=== PATIENT | female | born 1935 | race African-American/Black ===

== ENCOUNTER 2025-07-16 10:33 | Outpatient (AMB) | payer OTHER, MEDICAID, SELFPAY ==
--- NOTE | 2025-07-16 10:40 | A.OFFVIS_ITS ---
Intake Visit Reasons: 6 Months AD Allergies moxifloxacin (From Avelox) Allergy (Unknown, Verified 07/09/25 15:08) Unknown Penicillins Allergy (Unknown, Verified 07/09/25 15:08) Unknown HPI Comments Details: 89 yo woman probably with dementia with Lewy bodies. She was seen for parkinson disease in 2019 with right sided symptoms. She did not respond to carbidopa/levodopa and later developed hallucinating and delusional behavior, blaming other people for things. She is presenting with episodes of transient unresponsiveness and loss of consciousness. These episodes occur unexpectedly and appear as sudden collapses or becoming unconscious while eating, requiring others to assist by cleaning her mouth and eventually laying her down to rest. Recovery occurs after the patient sleeps for one to two hours. These episodes, although initially more common, h ave become less frequent over the past several days, with no such incidents reported in the last 4 to 5 days. Episodic memory loss follows each incident, with no recall of circumstances surrounding it. Evaluations during prior visits to the primary care provider suggested possibilities of seizure disorder, with a recommendation for EEG testing, to distinguish whether these episodes are due to seizures or other issues like transient hypotension. [facility] Medical History (Updated 07/16/25 @ 10:46 by Pau Hodges MD) Dementia with Lewy bodies Peripheral neuropathy Hypertension Cerebral microvascular disease Parkinson disease Review of Systems Const Details: - Neurological: Reports episodes of sudden unresponsiveness and loss of consciousness; denies recollection of events. - Cardiovascular: Mentions hypotension as a possible concern related to episodes. Physical Exam Neuro Other: She is alert and awake with decreased spontaneity and fluency of speech. She barely could see a were. Facial expression blinking were diminished. There was moderate cogwheeling rigidity in upper extremities. She was in a wheelchair. Assessment & Plan Assessment & Plan (1) Dementia with Lewy bodies: Comment: MRI brain WO at [facility] in Dec 2024: Mod diff atrophy MRI brain WO at in Dec 2018: mild to mod MVD, more so on right side of brain MRI C spine WO at in Dec 2018: diffuse DJD, mod spondylosis Code(s): G31.83 - Neurocognitive disorder with Lewy bodies; F02.80 - Dementia in other diseases classified elsewhere, unspecified severity, without behavioral distu rbance, psychotic disturbance, mood disturbance, and anxiety Category: Medical Qualifiers: Dementia severity: moderate Dementia behavioral or psychological symptom: with other behavioral disturbance Qualified Code(s): G31.83 - Neurocognitive disorder with Lewy bodies; F02.B18 - Dementia in other diseases classified elsewhere, moderate, with other behavioral disturbance (2) Transient loss of consciousness: Code(s): R55 - Syncope and collapse Category: Medical Plan I discussed with the patient and her family the possible causes of her episodes of unresponsiveness, which could be seizures, sleep disorder, or rarely related to hypotension. The potential for seizure activity prompted the recommendation of an EEG, a non-invasive test that records electrical activity in the brain, which we will conduct here. I made sure to explain the purpose and process of this diagnostic tool. Orders: Orders EEG electroencephalogram Today R55 - Syncope and collapse Coding Level of Care Code Tele Est Pt Level 4 (38203) Diagnoses Moderate Lewy body dementia with other behavioral disturbance G31.83; F02.B18 Dementia severity: moderate Dementia behavioral or psychological symptom: with other behavioral disturbance Transient loss of consciousness R55
--- OUTSIDE RECORDS SUMMARY | 2025-07-16 12:55 | XMS_ITS | Clinical Summary ---
Author Organization [facility] Address [address] [place] [address] Care Team Providers Care Gum Machine Operator Name Role Phone Jody Fontaine MD Primary Care Provider [phone] Medications No known medications Active Problems No known active problems Social History Tobacco Use Types Packs/Day Years Used Date Smoking Tobacco: Never Passive Smoke Exposure: Past Smokeless Tobacco: Never Tobacco Cessation:Counseling Given: Not Answered Alcohol Use Standard Drinks/Week Comments Yes 0 (1 standard drink = 0.6 oz pur e alcohol) Occasional Sex and Gender Information Value Date Recorded Sex Assigned at Not on file Gender Identity Not on file Sexual Orientation Not on file Job Start Date Occupation Industry Not on file Not on file Not on file Last Filed Vital Signs Vital Sign Reading Time Taken Comments Blood Pressure 133/64 08/30/2022 11:30 AM EDT Pulse 66 08/30/2022 11:30 AM EDT Temperature 36.4 C (97.6 F) 08/30/2022 11:30 AM EDT Respiratory Rate - - Oxygen Saturation 98% 08/30/2022 11:30 AM EDT Inhaled Oxygen Concentration - - Weight 65.8 kg (145 lb) 08/30/2022 11:30 AM EDT Height - - Body Mass Index - - Plan of Treatment Health Maintenance Due Date Last Done Comments COVID-19 Vaccine (#1) 04/27/1936 Depression Screening 1948 Preventative Health Evaluation 1954 DTap / Tdap / Td (1 - Tdap) 1955 Shingrix-Zoster Vaccine (1 o f 2) 1986 Fall Risk Assessment 2001 Osteoporosis Screening (DEXA Scan) 2001 RSV Adult > 60+ Yrs or (1 - 1-dose 75+ series) 2011 Influenza Vaccine (#1) 2025 0, 09/18/2019, 07/13/2017 Pneumococcal Vaccine Completed 12/17/2018, 12/15/2017 Hepatitis B Vaccines Aged Out No long er eligible based on patient's age to complete this topic RSV Ped < 20 months Aged Out No longe r eligible based on patient's age to complete this topic Care Teams Gum Machine Operator Relationship Specialty Start Date End Date Jody Fontaine MD PCP - General Internal Medicine 11/26/21
--- OUTSIDE RECORDS SUMMARY | 2025-07-16 12:55 | XMS_ITS ---
Author Name [facility] Organization Unknown Allergies Allergen Reaction Severity Comment Documented Date Source Statu s DOG DANDER 02/18/2022 [facility] active MOLD 10/06/2021 [facility] active ESCITALOPRAM 10/02/2020 [facility] activ e MOXIFLOXACIN NAUSEA AND VOMITING No reaction documented in transfer records 08/22/2017 [facility] active PENICILLINS RASH 07/13/2017 [facility] active HOUSE DUST [facility] Problems Problem Status Onset Date Problem Type Date of Resolution Source Glaucoma active 2017-07-03 ProblemAct [facility] Osteopenia active 2017-12-20 ProblemAct [facility] Overactive bladder active 2023-01-11 ProblemAct [facility] GERD (gastroesophageal reflux disease) active 2017-07-03 ProblemAct [facility] Hyperlipidemia active 2017-07-03 ProblemAct [facility] Allergic rhinitis active 2017-07-03 ProblemAct [facility] Urinary tract infection with hematuria, site unspecified active EncounterDiagnosisAct [facility] MOSES CKD (chronic kidney disease) stage 3, GFR 30-59 ml/min active 2017-07-03 ProblemAct [facility] Pulmonary nodules active 2019-03-28 ProblemAct [facility] COPD (chronic obstructive pulmonary disease) active 2022-02-16 ProblemAct [facility] N Hypertension active 2017-07-03 ProblemAct [facility] Asthma active 2017-07-03 ProblemAct [facility] Pericardial cyst active 2019-03-28 ProblemAct C T_[facility]SFRAN Prediabetes active 2017-07-03 ProblemAct [facility] Diverticulosis of colon active 2017-08-22 ProblemAct [facility] Peripheral arterial disease active 2019-05-16 ProblemAct [facility] Snoring active 2021-06-16 ProblemAct [facility] Other chest pain active 2022-02-16 ProblemAct C T_THSFRAN Shortness of breath active 2022-02-18 ProblemAct [facility] Fatigue active 2024-09-30 ProblemAct [facility] Pressure injury of contiguous region involving buttock and hip, stage 2 active 2023-11-28 ProblemAct [facility] Leg pain active 2023-12-06 ProblemAct [facility] Osteoarthritis active 2017-08-22 ProblemAct [facility]_ [facility] Ascending aorta dilatation active 2019-03-28 ProblemAct [facility] Do not resuscitate active 2024-01-18 ProblemAct [facility] Lab test negative for COVID-19 virus active 2021-04-20 ProblemAct [facility] N Urinary incontinence active 2023-01-11 ProblemAct [facility] Urinary urgency active 2023-01-[address] [facility] _[facility] Parkinson's disease active 2019-03-27 ProblemAct [facility] Fibrocystic breast disease active 2017-08-22 ProblemAct [facility] Immunizations Vaccine Date Source Lot Number Status Influenza trivalent, 0.5mL ( Fluad) 65yo and older 08/20/2024 [facility] [id number] completed Influenza trivalent, 0.5mL ( Fluad) 65yo and older 08/23/2023 [facility] [id number] completed Influenza trivalent, 0.5mL ( Fluad) 65yo and older 10/02/2020 [facility] [id number] completed Influenza trivalent, 0.5mL ( Fluad) 65yo and older 09/18/2019 [facility] [id number] completed Pneumococcal polysaccharide 23 valent (Pneumovax 23) 2yo and older 12/17/2018 [facility] [id number] com pleted Pneumococcal conjugate 13 va lent (Prevnar 13, PCV13) 2mo and older 12/15/2017 [facility] [id number] complet ed Influenza trivalent, 0.5mL ( Fluad) 65yo and older 07/13/2017 [facility] [id number] completed Zoster Live 04/10/2017 [facility]_CANDIDA [id number] completed Pneumococcal conjugate 13 va lent (Prevnar 13, PCV13) 2mo and older 02/11/2016 [facility]AYL[facility] [id number] complet ed Td Tetanus diptheria (Tdvax) 7yo and older 03/09/2007 [facility]_T HSFRAN TD-180 completed
== END 2025-07-16 11:01 | disposition home or self-care (01) ==
LOC: HO.HSM 10:34
PROVIDERS: PCP Internal Medicine; Referring Provider Internal Medicine; Visit Provider Psychiatry & Neurology Neurology
DX: G31.83 Neurocognitive disorder with Lewy bodies (principal); F02.B18 Dementia in other diseases classified elsewhere, moderate, with other behavioral disturbance; R55 Syncope and collapse
CPT/HCPCS: 99214

== ENCOUNTER → 2025-07-16 10:33 | Outpatient (BNVA) | payer OTHER, SELFPAY | PROVIDERS: PCP Internal Medicine; Referring Provider Internal Medicine; Visit Provider Psychiatry & Neurology Neurology | DX: G31.83 Neurocognitive disorder with Lewy bodies (principal); F02.B18 Dementia in other diseases classified elsewhere, moderate, with other behavioral disturbance; R55 Syncope and collapse | CPT/HCPCS: 99212 ==

== ENCOUNTER 2025-07-30 10:30 | Outpatient (REF) | payer OTHER, SELFPAY ==
--- NOTE | 2025-07-30 13:06 | EEG_ITS ---
Roomed Performed: 402 Reason:Syncope/ collapse History: H/O dementia with Lewy bodies, Parkinson disease in 2019 with right sided symptoms, Peripheral neuropathy Hypertension, Cerebral microvascular disease- pt c/o episodes of transient unresponsiveness and loss of consciousness-episodes occur unexpectedly and appear as sudden collapses or becoming unconscious while eating, requiring others to assist by cleaning her mouth and eventually laying her down to rest. Recovery occurs after the patient sleeps for one to two hours. These episodes, although initially more common, have become less frequent over the past several days, with no such incidents reported in the last 4 to 5 days-MRI brain WO at [facility] in Dec 2024: Mod diff atrophy Medication: list not available on [employer] Technical description: Photic stimulation: Completed Hyperventilation: Omitted Behavioral state: Pleasant and cooperative State of Consciousness: awake and drowsy Skull defect: No Sedation: No Handedness: Right Duration of study: 32 min 28 sec Description: This is a 16 channel EEG with an EKG lead. Patient is reported awake and drowsy during the tracing. Background EEG rhythm is 7-8 hertz 5-100 microvolt posteriorly and lower amplitude fast anteriorly. Photic stimulation does not produce any significant driving. Hyperventilation is unremarkable. Cardiac lead does not reveal any significant abnormality. No sharp waves spikes or paroxysmal tendency noted. Impression: Mild generalized slowing with no evidence of seizure disorder. MTDD
--- OUTSIDE RECORDS SUMMARY | 2025-07-30 13:07 | XMS_ITS | Clinical Summary ---
Author Organization [facility] Address [address] [place] [address] Care Team Providers Care Casting And Locker Room Servicer Name Role Phone Jody Fontaine MD Primary Care Provider [phone] Medications No known medications Active Problems No [...] age to complete this topic Care Teams Casting And Locker Room Servicer Relationship Specialty Start Date End Date oJdy Fontaine MD PCP - General Internal Medicine 11/26/21
== END 2025-07-30 10:31 | disposition home or self-care (01) ==
LOC: HO.NEURO 10:30
PROVIDERS: PCP Internal Medicine; Visit Provider Psychiatry & Neurology Neurology
DX: R55 Syncope and collapse (principal); G31.83 Neurocognitive disorder with Lewy bodies; F02.80 Dementia in other diseases classified elsewhere, unspecified severity, without behavioral disturbance, psychotic disturbance, mood disturbance, and anxiety; G20.A1 Parkinson's disease without dyskinesia, without mention of fluctuations; G62.9 Polyneuropathy, unspecified
CPT/HCPCS: 95816

== ENCOUNTER → 2025-07-30 13:06 | Outpatient (BNV) | payer OTHER, SELFPAY | PROVIDERS: PCP Internal Medicine; Visit Provider Psychiatry & Neurology Neurology | DX: R55 Syncope and collapse (principal) | CPT/HCPCS: 95816 ==

== ENCOUNTER 2025-09-03 10:32 | Outpatient (AMB) | payer OTHER, MEDICAID, SELFPAY ==
--- NOTE | 2025-09-03 10:42 | A.OFFVIS_ITS ---
Intake Visit Reasons: results Allergies moxifloxacin (From Avelox) Allergy (Unknown, Verified 07/09/25 15:08) Unknown Penicillins Allergy (Unknown, Verified 07/09/25 15:08) Unknown HPI Comments Details: 89 yo woman probably with clinical picture of dementia with Lewy bodies. She was seen for Parkinson disease in 2019 with right sided symptoms. She did not respond to carbidopa/levodopa and later developed hallucinating and delusional behavior, blaming other people for things. She had episodes of unresponsiveness and an EEG was done in July of 2025 that did not reveal any epileptic discharges. Generalized slowing was noted. She was here with the children. She has required 24/7 care. Hallucinations were still happening but not creating significant logistical problems. She would still get episodes of apparently sleeping or unresponsiveness. No convulsion or seizure-like episode. She was in a wheelchair. She was unable to get up on her own. [facility] Medical History (Updated 09/03/25 @ 10:45 by Pau Hodges MD) Dementia with Lewy bodies Peripheral neuropathy Hypertension Cerebral microvascular disease Parkinson disease Review of Systems Narrative She was having hallucinations. Not able to get up on her own and required 247 care. Physical Exam Neuro Other: Mental Status: Alert and awake with decreased spontaneity and fluency of speech. When asked a question, she briefly answers. Intermittently she smiles. Cranial Nerves: CN II: Visual freire full to confrontation, visual acuity intact. CN III, IV, : Pupils equal, round, reactive to light and accommodation. Extraocular movements are normal. CN V: Facial sensation is normal. CN VII: Facial movements symmetrical. CN VIII: Hearing intact to bedside conversation is normal. CN IX, X: Palate elevates symmetrically. CN XI: Shoulder shrug and head turn symmetrical. CN XII: Tongue midline without atrophy or fasciculations. She is in a wheelchair. Extrapyramidal: Decreased facial expression blinking. Moderate cogwheeling rigidity. Significant arthritic changes in hands. [id number] generalized bradykinesia. Speech: Normal; no dysarthria or tremor. Assessment & Plan Assessment & Plan (1) Dementia with Lewy bodies: Comment: EEG at [facility] in Jul 2025: Gen slowing MRI brain WO at [facility] in Dec 2024: Mod diff atrophy MRI brain WO at in Dec 2018: mild to mod MVD, more so on right side of brain MRI C spine WO at in Dec 2018: diffuse DJD, mod spondylosis Code(s): G31.83 - Neurocognitive disorder with Lewy bodies; F02.80 - Dementia in other diseases classified elsewhere, unspecified severity, without behavioral disturbance, psychotic disturbance, mood disturbance, and anxiety Category: Medical Qualifiers: Dementia severity: moderate Dementia behavioral or psychological symptom: with other behavioral disturbance Qualified Code(s): G31.83 - Neurocognitive disorder with Lewy bodies; F02.B18 - Dementia in other diseases classified elsewhere, moderate, with other behavioral disturbance Plan Impression: a: Parkinsonism, a part of dementia syndrome b: Probably dementia with Lewy body syndrome, moderate to severe requring 29/05 help c: 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
--- OUTSIDE RECORDS SUMMARY | 2025-09-03 13:05 | XMS_ITS | Encounter Summary ---
Author Organization [facility] [place] [address] Care Team Providers Care Clarifier Name Role Phone Jody Fontaine MD Primary Care Provider [phone] Reason for Visit * Reason Onset Date Comments Vaginitis/Bacterial Vaginosis 09/01/2025 Encounter Details Date Type Department Care Team (Late st Contact Info) Description 09/01/2025 [place] [facility] [place] [address] [phone] Rosie Atkins NP [address], [place] Social History Tobacco Use Types Packs/Day Years Used Date Smoking Tobacco: Never Smokeless Tobacco: Never Alcohol Use Standard Drinks/Week Comments No 0 (1 standard drink = 0.6 oz pur e alcohol) Comments No Sex and Gender Information Value Date Recorded Sex Assigned at Not on file Legal Sex Female 1:53 PM EST Gender Identity Not on file Sexual Orientation Not on file documented as of this encounter Functional Status * Are you deaf or do you have serious difficulty hearing? Answer Date of Assessment Author No 07/10/2025 9:35 AM Nataly Pichardo RN * Are you blind or do you have serious difficulty seeing, even when wearing glasses? Answer Date of Assessment Author No 07/10/2025 9:35 AM Nataly Pichardo RN * Do you have serious difficulty walking or climbing stairs? Answer Date of Assessment Author Yes 07/10/2025 9:35 AM EDT Nataly Hdz RN * Do you have serious difficulty dressing or bathing? Answer Date of Assessment Author Yes 07/10/2025 9:35 AM EDT Nataly Hdz RN * Because of a physical, mental, or emotional condition, do you have serious difficulty doing errandsalone such as visiting the doctor? Answer Date of Assessment Author Yes 07/10/2025 9:35 AM EDT Nataly Hdz RN documented as of this encounter Mental Status * Because of a physical, mental, or emotional condition, do you have serious difficulty concentrating, remembering, or making decisions? (5 years old or older) Answer Entry Date Author Yes 07/10/2025 9:35 AM EDNataly Rodriguez RN documented in this encounter Progress Notes * Georgiana Wooten RN - 09/01/2025 10:39 AM EDT Pt has UTI and is being treated with Macrobid per culture. She also has moisture associated dermatitis she will use lotrimin cream and then use zinc and Vaseline as barrier on buttocks * India Cárdenas - 09/01/2025 10:17 AM EDT Patient call requires triage: Symptoms patient is presenting: daughter is calling. Patient was seen on 08/20 and was prescribed clotrimazole (LOTRIMIN) 1 % cream for fungus. Daughter states her mother has raw skin in the vaginal area, labia area, very tender, she saw some blood when she is cleaning the area. She is asking if this medication can be used in the vaginal area or is something else more appropriate. The area is very uncomfortable for the patient. Patient is bedridden. Being treated for a UTI and fungal infection from W[facility] Atkins. How long has patient had these symptoms?: unsure For ALL patients calling to schedule any appointment (routine, sick visit, follow up, consult, etc.) in the outpatient setting please ask the following questions: Do you have fever of higher than 101, sore throat with difficulty swallowing or severe shortness ofbreath? no If YES to any of these above symptoms, send a message to triage and do not book. Red dot. If no, an audio or video visit should be booked. Have you had close contact with someone with Coronavirus in the last 14 days? no Have you traveled abroad? no Have you traveled recently to another state outside of [place], [place], [place], [place], [place], [place], [place]? no o If yes, did you quarantine for 14 days or have a negative covid test? no If yes to any of the above, patient is not to be scheduled in office until after 14 day quarantine or negative covid test. If pain or injury related was it due to an accident at work or from a motor vehicle accident? If yes, date of accident/Injury: No If yes, gather 3rd green party insurance information Third Republican Information: not applicable PCP: Jody Fontaine MD Payor: [employer] / Plan: [employer] / Product Type: *No Product type* / documented in this encounter Plan of Treatment Upcoming Encounters Date Type Department Care Team (Late st Contact Info) Description 11/26/2025 11:00 AM EST [place] [facility] [place] [address] [place] [address] Rosie Atkins NP [address], [place] 03/04/2026 11:00 AM EDT Office Visit Pulmonology - [address] [place] [phone] Sumi Borrego MD [address] [place] [phone] documented as of this encounter Visit Diagnoses Not on filedocumented in this encounter Care Teams Clarifier Relationship Specialty Start Date End Date Jody Fontaine MD [address], [place] PCP - General Internal Medicine 09/06/21 documented as of this encounter
--- OUTSIDE RECORDS SUMMARY | 2025-09-03 13:05 | XMS_ITS | Encounter Summary ---
Author Organization [email or web address] [address] Care Team Providers Care Freight Sorter Name Role Phone Jody Fontaine MD Primary Care Provider [phone] Encounter Details Date Type Department Care Team (Late st Contact Info) Description 08/25/2025 Results [place] [facility] [place] [address] [place], [place] [phone] Rosie Atkins NP [address], [place] Social History Tobacco Use Types Packs/Day [...] Entry Date Author Yes 07/10/2025 9:35 AM EDT Nataly Hdz RN documented in this encounter Ordered Prescriptions Prescription Sig Dispense Quantity Refills Last Filled Start Date End Date nitrofurantoin, macrocrystal-monoh ydrate, (MACROBID) 100 mg capsule Take 1 capsule (100 mg total) by mouth 2 (two) times a day for 7 days. 14 each 08/25/2025 documented in this encounter Progress Notes * Rosie Atkins NP - 08/25/2025 12:34 PM EDT Patient UA is consistent with possible UTI. Will send prescription for Macrobid twice daily for 7 days. May adjust medication depending on susceptibility and culture. Spoke with daughter Mariangel, who will pick prescription up from pharmacy. documented in this encounter Plan of Treatment Upcoming Encounters Date Type Department Care Team (Late st Contact Info) Description 11/26/2025 11:00 AM EST [place] [facility] [place] [address] [place] [address] Rosie Atkins NP [address], [place] 03/04/2026 11:00 AM EDT Office Visit Pulmonology - [address] [place] [phone] Sumi Borrego MD [address] [place] [phone] documented as of this encounter Visit Diagnoses Diagnosis Acute cystitis without hematuria- Primary documented in this encounter Care Teams Freight Sorter Relationship Specialty Start Date End Date Jody Fontaine MD [address] [place] [address] PCP - General Internal Medicine 09/06/21 documented as of this encounter
--- OUTSIDE RECORDS SUMMARY | 2025-09-03 13:05 | XMS_ITS | Encounter Summary ---
Author Organization [facility] [place] [address] Care Team Providers Care Fly Rail Operator Name Role Phone Jody Fontaine MD Primary Care Provider [phone] Reason for Visit * Reason Onset Date Comments Fitting for DME 08/22/2025 Homecare Deliver ed Encounter Details Date Type Department Care Team (Late st Contact Info) Description 08/22/2025 [place] [facility] [place] [address] [place] [phone] Jody Fontaine MD [address], [place] [phone] Social History Tobacco Use Types Packs/Day Years [...] of Assessment Author No 07/10/2025 9:35 AM EDT Nataly Hdz RN * Are you blind or do you have serious difficulty seeing, even when wearing glasses? Answer Date of Assessment Author No 07/10/2025 9:35 AM EDNataly Rodriguez RN * Do you have serious difficulty [...] Nataly Hdz RN documented in this encounter Progress Notes * Go Yip MA - 09/01/2025 4:42 PM EDT Signed orders faxed * Go Yip [place] - 08/26/2025 2:43 PM EDT To PCP for sig * Fany Gomez - 08/22/2025 2:20 PM EDT DME REQUEST Name of Product: adult size pull up-on lg, non-sterile gloves, large disposable underpad and reusable underpad bed doreen Specific information about product n/a # Needed n/a Reason patient is asking for this supply? Unspecified urinary incontinence and urgency or urination Have you received this supply before? If yes , when?: unknown Have you discussed the need for this supply with a provider at a recent visit? If yes, with who andwhen? unknown When completed: fax to [phone] Who is requested? Is this a fax request? Have you told the patient it will take 7-10 days for completion of this request? No documented in this encounter Plan of Treatment Upcoming Encounters Date Type Department Care Team (Late st Contact Info) Description 11/26/2025 11:00 AM EST Office Visit [place] [facility] [place] [address] [phone] Rosie Atkins NP [address], [place] 03/04/2026 11:00 AM EDT Office Visit Pulmonology - [address] [place] [phone] Sumi Borrego MD [address] [place] [phone] documented as of this encounter Visit Diagnoses Not on filedocumented in this encounter Care Teams Fly Rail Operator Relationship Specialty Start Date End Date Jody Fontaine MD [address] [place] [address] PCP - General Internal Medicine 09/06/21 documented as of this encounter
--- OUTSIDE RECORDS SUMMARY | 2025-09-03 13:05 | XMS_ITS | Clinical Summary ---
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
--- OUTSIDE RECORDS SUMMARY | 2025-09-03 13:05 | XMS_ITS | Clinical Summary ---
Author Organization [address] [facility] Address [address] [place] [address] Phone Care Team Providers Care Cafe Site Attendant Name Role Phone Jody Fontaine MD Primary Care Provider [phone] Allergies Active Allergy Reactions Criticality Noted Date Comments Dog Dander 02/18/2022 Escitalopram 10/02/2020 House Dust 10/06/2021 Mold 10/06/2021 Moxifloxacin Nausea And Vomiting Medium 08/22/2017 No reaction documented in transfer records Penicillins Rash 07/13/2017 Medications albuterol 2.5 mg /3 mL (0.083 %) nebulizer solution Inhale 3 mL (2.5 mg total) by mouth. Prescribed by Pulmonology 10/04/20 22 Active albuterol HFA (PROAIR HFA ; PROVENTIL HFA ; VENTOLIN HFA) 90 mcg/actuation inhaler Inhale 2 puffs by mouth. Prescribed by Pulmonology 08/28/20 23 Active cholecalcifer ol (VITAMIN D-3) 25 mcg (1,000 unit) tablet Take 1 tablet (1,000 Units total) by mouth 1 (one) time each day. OTC Active dorzolamide-t imoloL (COSOPT) 22.3-6.8 mg/mL ophthalmic solution Prescribed by Dr. Patel (Ophthalmology) 09/06/20 24 Active senna (SENOKOT) 8.6 mg tablet Take by mouth. OTC Active zinc oxide 20 % ointment OTC 12/25/19 24 Active carbidopa-lev odopa CR (SINEMET CR) 50-200 mg per CR tablet Take 1 tablet by mouth 4 (four) times a day. 03/18/20 21 Active budesonide (PULMICORT) 1 mg/2 mL nebulizer solutionIndic ations:COPD with asthma (CMS/[facility] V24, CMS/[facility] V28) Take 2 mL (1 mg total) by nebulization 1 (one) time each day. Rinse mouth with water after use to reduce aftertaste and incidence of candidiasis. Do not swallow. 60 mL 11 12/11/19 25 026 Active famotidine (PEPCID) 20 mg tablet TAKE 1 TABLET(20 MG) BY MOUTH TWICE DAILY FOR 15 DAYS 30 tablet 02/12/20 25 Active apixaban (Eliquis) 5 mg tablet Take 1 tablet (5 mg total) by mouth 2 (two) times a day. 180 tablet 04/30/20 25 Active cetirizine (ZyrTEC) 10 mg tablet Take 1 tablet (10 mg total) by mouth 1 (one) time each day. 90 tablet 04/30/20 25 Active amLODIPine (NORVASC) 2.5 mg tablet TAKE 1 TABLET(2.5 MG) BY MOUTH 1 TIME EACH DAY 90 tablet 1 05/08/20 25 Active polyethylene glycol (MIRALAX) 17 gram packet Take 17 g by mouth 1 (one) time each day. 30 packet 3 06/11/20 25 Active bimatoprost (LUMIGAN) 0.03 % ophthalmic drops Administer 1 drop into both eyes 1 (one) time each day. 04/08/20 08 Active foam bandage (Mepilex Border Sacrum) 9.2 X 9.2 bandage Apply 1 each topically 2 (two) times a day if needed (if soild). Apply to pressure area (buttocks) 60 each 3 06/16/20 25 Active hydroCHLOROth iazide (HYDRODIURIL) 25 mg tablet Take 0.5 tablets (12.5 mg total) by mouth 1 (one) time each day. 90 tablet 06/16/20 25 Active estradioL (ESTRACE) 0.01 % (0.1 mg/gram) vaginal cream USE 0.5 GRAMS IN THE VAGINA TWICE A WEEK AT NIGHT(MONDAYS AND THURSDAYS) 42.5 g 1 07/17/20 25 Active baclofen (LIORESAL) 10 mg tablet TAKE 1 TABLET(10 MG) BY MOUTH TWICE DAILY 180 tablet 1 07/17/20 25 Active omeprazole (PriLOSEC) [address] capsule TAKE 1 CAPSULE(20 MG) BY MOUTH 1 TIME EACH DAY 90 capsule 1 08/21/20 25 Active clotrimazole (LOTRIMIN) 1 % cream Apply topically 2 (two) times a day. 15 g 3 08/20/20 25 Active budesonide (Pulmicort) 0.5 mg/2 mL nebulizer solutionIndic ations:COPD with asthma ([facility] V24, [facility] V28) Take 2 mL (0.5 mg total) by nebulization 2 (two) times a day. Rinse mouth with water after use to reduce aftertaste and incidence of candidiasis. Do not swallow. 120 mL 11 08/27/20 25 026 Active albuterol 2.5 mg /3 mL (0.083 %) nebulizer solutionIndic ations:COPD with asthma ([facility] V24, [facility] V28) Take 3 mL (2.5 mg total) by nebulization every 6 (six) hours if needed for wheezing. 360 mL 08/27/20 Active Arnuity Ellipta 200 mcg/actuation blister with device inhaler INHALE 1 PUFF INTO THE LUNGS DAILY 025 Discontinued fluticasone HFA (FLOVENT HFA) 110 mcg/actuation inhaler INHALE 2 PUFFS INTO THE LUNG TWICE DAILY 025 Discontinued methenamine hippurate (HIPREX) 1 gram tablet Take 1 tablet (1 g total) by mouth 2 (two) times a day. 60 each 3 12/05/19 25 025 Discontinued omeprazole (PriLOSEC) [address] capsule TAKE 1 CAPSULE(20 MG) BY MOUTH 1 TIME EACH DAY 90 capsule 05/22/20 25 025 Discontinued clotrimazole (LOTRIMIN) 1 % cream Apply topically 2 (two) times a day. 15 g 1 06/16/20 25 025 Discontinued(R eorder) nitrofurantoi n, macrocrystal- monohydrate, (MACROBID) 100 mg capsule Take 1 capsule (100 mg total) by mouth 2 (two) times a day for 7 days. 14 each 08/25/20 25 025 Active Problems Problem Noted Date Diagnosed Date Pressure injury of sacral re gion, stage 2 ([facility] V24, [facility] V28) 03/03/2025 Fatigue 09/30/2024 Do not resuscitate 01/18/2024 Leg pain 12/06/2023 Pressure injury of contiguou s region involving buttock and hip, stage 2 ([facility] V24, [facility] V28) 11/28/2023 Overactive bladder 01/11/2023 Urinary incontinence 01/11/2023 Urinary urgency 01/11/2023 Shortness of breath 02/18/2022 COPD (chronic obstructive pu lmonary disease) ([facility] V24, [facility] V28) 02/16/2022 Other chest pain 02/16/2022 Overview (09/30/2024): Ongoing Snoring 06/16/2021 Overview (09/30/2024): 05/2021 Home Sleep Study did not reveal sleep apnea or nocturnal hypoxia. Lab test negative for COVID-19 virus 04/20/2021 Peripheral arterial disease ([facility] V24) 2018 Overview (09/30/2024): (03/07/2019): Right foot CRISTINA 0.37, left foot CRISTINA 1.05. Significant on the right side. Performed by [facility] advanced practice clinicians. 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 She was seen in ER for this, and case was discussed with cardiac surgeon and no intervention was needed at that time and was advised to follow-up with outpatient cardiac surgery. She is been referred to cardiac surgeon. Last Assessment & Plan: 86-year-old woman with multiple medical comorbidities with a pericardial cyst that now is slightly above 6 cm in size. To my eye, this is slightly bigger than previous CAT scan from a year ago. I had a long discussion with her and her daughter about pericardial cyst in general and that I do not think this is affecting her in any way. I certainly do not think this is causing her fatigue which is one of her main complaints at this time. It is possible that this is causing the dull pain that she has underneath her breastbone although there is no guarantee with that either. Given that this is almost certainly a benign and to have borderline size for resection in combination with her age/comorbidities my recommendation would be for continued follow-up CT scans. Her next CT scan will be in 1 years time. We did also discussed the possibility of surgery which I be willing to offer but I did make it clear that this will not improve her general fatigue. Pulmonary nodules 03/28/2019 Overview (09/30/2024): Tiny pulmonary nodules seen on CT chest 03/24. Parkinson's disease ([facility] V24, [facility] V28) 0 03/27/2019 Osteopenia 12/20/2017 Diverticulosis of colon 08/22/2017 Fibrocystic breast disease 08/22/2017 Osteoarthritis 08/22/2017 Allergic rhinitis 07/03/2017 Asthma 07/03/2017 CKD (chronic kidney disease) stage 3, GFR 30-59 ml/min (CMS/HCC V24, CMS/HCC V28) 07/03/2017 GERD (gastroesophageal reflux disease) 7 Glaucoma 07/03/2017 Hyperlipidemia 07/03/2017 Hypertension 07/03/2017 Prediabetes 07/03/2017 Encounters Date Type Department Care Team Description 09/01/2025 Telephone Adult Medicine [address] [address] Rosie Atkins NP 08/27/2025 10:30 AM EDT Office Visit Pulmonology - [address] [place] [address] Sumi Borrego MD Lung nodules (Primary Dx); COPD with asthma (CMS/HCC V24, CMS/HCC V28); Chronic cough 08/25/2025 Results Follow-Up [address] [phone] Rosie Atkins NP 08/22/[address] [phone] Jody Fontaine MD 08/20/2025 2:00 PM EDT Office Visit [address] [phone] Rosie Atkins NP Dysuria (Primary Dx); Frequency of urination; Postural urinary incontinence; Candidal intertrigo 07/10/2025 9:22 AM EDT - 07/10/2025 12:01 PM EDT Emergency [facility] Emergency [address] [place] [address] Zeyad Jones MD Right leg swelling (Primary Dx); Atkins's cyst of knee, right; Arthritis of right knee Discharge Disposition: Home or Self Care 06/16/2025 1:00 PM EDT Office Visit [address] [phone] Rosie Atkins NP Candidal intertrigo (Primary Dx); Pressure injury of buttock, stage 2, unspecified laterality (CMS/HCC V24, CMS/[facility] V28); Syncope, unspecified syncope type; Parkinson's disease, unspecified whether dyskinesia present, unspecified whether manifestations fluctuate (CMS/HCC V24, CMS/HCC V28); Primary hypertension; Encounter for screening for cardiovascular disorders 06/16/[address] [phone] Rosie Atkins NP from Last 3 Months Immunizations Immunization Administration Dates Next Due Influenza trivalent, 0.5mL ( Fluad) 65yo and older 08/20/2024,08/23/2023,10/02/2020,09/18,07/13/2017 Pneumococcal conjugate 13 va lent (Prevnar 13, PCV13) 2mo and older 12/15/2017,02/11/2016 Pneumococcal polysaccharide 23 valent (Pneumovax 23) 2yo and older 12/17/2018 Td Tetanus diptheria (Tdvax) 7yo and older 03/09/2007 Zoster Live 04/10/2017 Surgical History Surgery Date Site/Laterality Comments HYSTERECTOMY PROCEDURE: HISTORICAL HYSTERECTOMY OTHER SURGICAL HISTORY 2006 PROCEDURE: HISTORY OTHER; COMMENT: Sinus sugery UPPER GASTROINTESTINAL ENDOSCOPY 2014 PROCEDURE: [place] UPPER GI ENDOSCOPY PERFORMED; COMMENT: Pleet; normal COLONOSCOPY 2010 PROCEDURE: HISTORICAL COLONOSCOPY; COMMENT: Pleet; single non-specific erosion in the TI. COLONOSCOPY 2014 PROCEDURE: HISTORICAL COLONOSCOPY; COMMENT: Pleet, diverticulosis and melanosis coli. Medical History Medical History Date Comments Hypertension 07/03/2017 DX:Hypertension Allergic rhinitis 07/03/2017 DX:Allergic rh initis Glaucoma 07/03/2017 DX:Glaucoma Asthma 07/03/2017 DX:Asthma Prediabetes 07/03/2017 DX:Prediabetes CKD (chronic kidney disease) stage 3, GFR 30-59 ml/min (CMS/HCC V24, CMS/HCC V28) 07/03/2017 DX:CKD (chronic kidney disea se) stage 3, GFR 30-59 ml/min ([facility]) Positive Helicobacter pylori serology 07/03/2017 DX:Positive Helicobacter pylori serology; COMMENT: Referred for UGI. Dr Chaney GERD (gastroesophageal reflux disease) 7 DX:GERD (gastroesophageal reflux disease) Hyperlipidemia 07/03/2017 DX:Hyperlipidemi a Osteoarthritis 08/22/2017 DX:Osteoarthriti s Diverticulosis of colon 08/22/2017 DX:Diver ticulosis of colon Fibrocystic breast disease 08/22/2017 DX:Fi brocystic breast disease Osteopenia 12/20/2017 DX:Osteopenia Positive H. pylori test 03/28/2019 DX:Posit savannah H. pylori test Ascending aorta dilatation ( CMS/HCC V24) 03/28/2019 DX:Ascending aorta dilatatio n (HCC); COMMENT: [address] chest 03/24 Pulmonary nodules 03/28/2019 DX:Pulmonary n odules; COMMENT: Tiny pulmonary nodules seen on CT chest 03/24. History of Helicobacter pylo ri infection 07/03/2017 DX:History of Helicobacter p ylori infection; COMMENT: Referred for UGI. Dr Chaney. No additional details available in transfer records. 08/12/2019---rx completed 08/02/2019. Fatigue DX:Fatigue Other chest pain DX:Other chest pain DVT (deep venous thrombosis) ([facility] V24, [facility] V28) DX:DVT (deep venous thrombos is) ([facility]); COMMENT: bilateral Vascular disease DX:Vascular dis ease COPD (chronic obstructive pu lmonary disease) ([facility] V24, [facility] V28) DX:COPD (chronic o bstructive pulmonary disease) ([facility]) Parkinson's disease ([facility] V24, [facility] V28) DX:Parkinson's disease ([facility]) 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 ner syndrome Family History Medical History Relation Name Comments Colon cancer Mother Dementia Relation Name Status Comments Father Mother Social History Tobacco Use Types Packs/Day Years Used Date Smoking Tobacco: Never Smokeless Tobacco: Never Tobacco Cessation:Counseling Given: Not Answered Alcohol Use Standard Drinks/Week Comments No 0 (1 standard drink = 0.6 oz pur e alcohol) Comments No Sex and Gender Information Value Date Recorded Sex Assigned at Not on file Legal Sex Female 1:53 PM EST Gender Identity Not on file Sexual Orientation Not on file Obstetrics History Last Filed Vital Signs Vital Sign Reading Time Taken Comments Blood Pressure 103/61 08/27/2025 10:18 AM EDT Pulse 68 08/27/2025 10:18 AM EDT Temperature 35.5 C (95.9 F) 08/27/2025 10:18 AM EDT Respiratory Rate 14 07/10/2025 9:34 AM EDT Oxygen Saturation 91% 08/27/2025 10:18 AM EDT Inhaled Oxygen Concentration - - Weight 67.1 kg (148 lb) 08/27/2025 10:18 AM EDT Height 167.6 cm (5' 6 ) 08/20/2025 1:59 PM EDT Body Mass Index 23.89 08/20/2025 1:59 PM EDT Plan of Treatment Upcoming Encounters Date Type Department Care Team (Late st Contact Info) Description 11/26/2025 11:00 AM EST Office Visit Adult Medicine [id number] [place] [phone] Rosie Atkins NP [address] [place] [address] 03/04/2026 11:00 AM EDT Office Visit Pulmonology - [place] [address] [place] [address] Sumi Borrego MD [address] [place] [phone] Health Maintenance Due Date Last Done Comments COVID-19 Vaccine (#1) 1941 RSV Immunization Adult Patients (1 - 1-dose 75+ series) 2011 DTaP,Tdap,and Td Vaccines (2 - Td or Tdap) 03/09/2017 03/09/2007 Zoster Vaccines (1 of 2) 06/05/2017 04/10/2017 Cholesterol Screening (Lipid Panel) 10/04/2022 Medicare Annual Wellness Visit 10/04/2022 Social Influencers of Health Screening 10/04/2022 Depression Screening 11/06/2024 Influenza Vaccine (#1) 2025 , 08/23/2023, 10/02/2020, Additional history exists Hypertension/CHF/CAD Annual BMP Blood Test 01/14/2026 01/14/2025, 09/30/2024, 08/20/2024 Falls Risk Assessment 06/16/2026 06/16/2025 Osteoporosis Screening (Bone Density Screening) 05/11/2031 05/11/2021, 12/20/2017 Pneumococcal Vaccine: 50+ Years Completed 12/17/2018, 12/15/2017, 02/11/2016, Additional history exists HIB Vaccines Aged Out No longer eligi ble based on patient's age to complete this topic HPV Vaccines Aged Out No longer eligi ble based on patient's age to complete this topic Hepatitis A Vaccines Aged Out No long er eligible based on patient's age to complete this topic Hepatitis B Vaccines Aged Out No long er eligible based on patient's age to complete this topic IPV Vaccines Aged Out No longer eligi ble based on patient's age to complete this topic MMR Vaccines Aged Out No longer eligi ble based on patient's age to complete this topic Meningococcal ACWY Vaccine Aged Out N o longer eligible based on patient's age to complete this topic Meningococcal B Vaccine Aged Out No l onger eligible based on patient's age to complete this topic RSV Immunization Patients Under 20 months Aged Out No longer eligible based on patient's age to complete this topic Varicella Vaccines Aged Out No longer eligible based on patient's age to complete this topic Procedures Procedure Name Priority Date/Time Associated Diagnosis Comments URINALYSIS WITH REFLEX MICROSCOPIC AND CULTURE Routine 08/25/2025 10:03 AM EDT Dysuria CULTURE URINE Routine 08/25/2025 10:03 AM EDT Dysuria EXTERNAL NEUROLOGY REPORT 07/30/2025 VAS US DUPLEX LOWER EXT VENOUS RIGHT STAT 07/10/2025 10:15 AM EDT Right leg swelling COMPREHENSIVE METABOLIC PANEL STAT 01/14/2025 12:31 PM EDT DXA BONE DENSITY STUDY 1+ SITS AXIAL SKEL Routine 05/11/2021 2:48 PM EDT Parkinson's disease ([facility] V24, [facility] V28) from Last 3 Months or Most Recently Relevant to Health Maintenance Results * (ABNORMAL) Urinalysis with reflex microscopic and culture (08/25/2025 10:03 AM EDT) Specific Flushing Urine 1.010 1.003 - 1.030 LAB URINALYSIS - AUTOMATED METHOD 08/25/2025 11:59 AM EDT [facility] pH, Urine 6.5 5.0 - 8.0 pH LAB URINALYSIS - AUTOMATED METHOD 08/25/2025 11:59 AM T [facility] Leukocytes, Urine Moderate(A) Negative LAB URINALYSIS - AUTOMATED METHOD 08/25/2025 11:59 AM T [facility] Nitrite, Urine Positive(A) Negative LAB URINALYSIS - AUTOMATED METHOD 08/25/2025 11:59 AM [facility] Protein, Urine Negative <=Trace mg/dL LAB URINALYSIS - AUTOMATED METHOD 08/25/2025 11:59 AM [facility] Glucose, Urine Negative Negative mg/dL LAB URINALYSIS - AUTOMATED METHOD 08/25/2025 11:59 AM [facility] Ketones, Urine Trace(A) Negative mg/dL LAB URINALYSIS - AUTOMATED METHOD 08/25/2025 11:59 AM [facility] Urobilinogen , Urine 0.2 0.2 - 1.0 mg/dL LAB URINALYSIS - AUTOMATED METHOD 08/25/2025 11:59 AM [facility] Bilirubin, Urine Negative Negative LAB URINALYSIS - AUTOMATED METHOD 08/25/2025 11:59 AM [facility] Blood, Urine Negative Negative LAB URINALYSIS - AUTOMATED METHOD 08/25/2025 11:59 AM [facility] RBC, Urine 1 0 - 4 /HPF 08/25/2025 11:59 AM [facility] WBC, Urine 50(H) 0 - 4 /HPF 08/25/2025 11:59 AM [facility] Squamous Epithelial, Urine 20 0 - 60 /LPF 08/25/2025 11:59 AM [facility] Bacteria, Urine Many(A) Negative /HPF 08/25/2025 11:59 AM [facility] Hyaline Casts, Urine 0 0 - 3 /LPF 08/25/2025 11:59 AM [facility] Urine Urine specimen obtained by clean catch procedure / Unknown Non-blood Collection / Unknown 08/25/2025 10:03 AM EDT 08/25/2025 10:03 AM EDT us Rosie Atkins TURF MANAGER LAB URINE ORDERABLES Final R esult Performing Organization Address [facility]/ZIP Co de Phone Number [facility] [address] [place] [address], * (ABNORMAL) Culture urine (08/25/2025 10:03 AM EDT) Culture, Urine >=100,000 CFU/mL Escherichia coli(A) ROYER 08/29/2025 11:32 AM EDT [facility] Urine Urine specimen obtained by clean catch procedure / Unknown Non-blood Collection / Unknown 08/25/2025 10:03 AM EDT 08/25/2025 11:59 AM EDT Narrative [facility] - 08/29/2025 11:32 AM EDT Additional colony types present in insignificant amounts. Organism Antibiotic Method Susceptibility Escherichia coli Amoxicillin/Clavulanate ROYER 8 ug/ml: Resistant Escherichia coli Ampicillin/Sulbactam ROYER >=32 ug/ml: Resistant Escherichia coli Piperacillin/Tazobactam ROYER <=4 ug/ml: Susceptible Escherichia coli Cefazolin (Urine) ROYER 16 ug/ml: Susceptible Comment:This is an a ppended report. These results have been appended to a previously final verified report. Escherichia coli Cefoxitin ROYER 32 ug/ml: Resistant Escherichia coli Ceftazidime ROYER <=0.5 ug/ml: Susceptible Escherichia coli Ceftriaxone ROYER <=0.25 ug/ml: Susceptible Escherichia coli Cefepime ROYER <=0.12 ug/ml: Susceptible Escherichia coli Meropenem ROYER <=0.25 ug/ml: Susceptible Escherichia coli Amikacin ROYER 4 ug/ml: Susceptible Escherichia coli Gentamicin ROYER <=1 ug/ml: Susceptible Escherichia coli Ciprofloxacin ROYER >=4 ug/ml: Resistant Escherichia coli Levofloxacin ROYER >=8 ug/ml: Resistant Escherichia coli Nitrofurantoin ROYER <=16 ug/ml: Susceptible Escherichia coli Trimethoprim/Sulfamethoxazole ROYER <=20 ug/ml: Susceptible Rosie Atkins TURF MANAGER LAB MICROBIOLOGY - GENERAL O RDERABLES Edited Result - Final [facility] [address] [place] [address], [place] [phone] * External Neurology Report (07/30/2025) us Provider [facility] NEUROLOGY ORDERABLES Fin al Result * Vascular US duplex lower extremity venous right (07/10/2025 10:15 AM EDT) Anatomical Region Laterality Modality Vascular, Abdomen Ultrasound 07/10/2025 10:2 4 AM EDT Narrative 07/10/2025 10:25 AM EDT INDICATION: leg pain and swelling. FINDINGS: A duplex venous ultrasound was performed of the right lower extremity. The common femoral, superficial femoral and popliteal veins demonstrate color-flow with augmentation and compressibility. The visualized calf veins also demonstrate color-flow. Small right knee joint effusion. Linear 3 cm x 1.6 cm x 0.5 cm right popliteal fossa cystic structure likely a Atkins's cyst. CONCLUSION: No evidence of deep vein thrombosis in right lower extremity. -------- FINAL REPORT -------- Dictated By: Chaparro Aguilar Dictated Date: 07/10/2025 10:24 ET Assigned Physician: Chaparro Aguilar Reviewed and Electronically Signed By: Chaparro Aguilar Signed Date: 07/10/2025 10:25 ET Workstation ID: [id number] Transcribed By: Self Edit Transcribed Date: 07/10/2025 10:24 ET Procedure Note Chaparro Aguilar MD - 07/10/2025 INDICATION: leg pain and swelling. FINDINGS: A duplex venous ultrasound was performed of the right lowerextremity. The common femoral, superficial femoral and popliteal veinsdemonstrate color-flow with augmentation and compressibility. Thevisualized calf veins also demonstrate color-flow. Small right knee joint effusion. Linear 3 cm x 1.6 cm x 0.5 cm right popliteal fossa cystic structurelikely a Atkins's cyst. CONCLUSION: No evidence of deep vein thrombosis in right lower extremity. -------- FINAL REPORT -------- Dictated By: Chaparro Aguilar Dictated Date: 07/10/2025 10:24 ET Assigned Physician: Chaparro Aguilar Reviewed and Electronically Signed By: Chaparro Aguilar Signed Date: 07/10/2025 10:25 ET Workstation ID: [id number] Transcribed By: Self Edit Transcribed Date: 07/10/2025 10:24 ET us Zeyad Jones MD CV VASCULAR PROCEDURES Final Res ult * (ABNORMAL) Comprehensive metabolic panel (01/14/2025 12:31 PM EDT) Sodium 142 133 - 145 mmol/L LAB CHEMISTRY METHOD 01/14/2025 2:37 PM [facility] Potassium 3.4(L) 3.5 - 5.5 mmol/L LAB CHEMISTRY METHOD 01/14/2025 2:37 PM [facility] Chloride 106 96 - 110 mmol/L LAB CHEMISTRY METHOD 01/14/2025 2:37 PM [facility] CO2 28 21 - 32 mmol/L LAB CHEMISTRY METHOD 01/14/2025 2:37 PM [facility] Anion Gap 8 3 - 11 LAB CHEMISTRY METHOD 01/14/2025 2:37 PM [facility] Glucose 99 70 - 100 mg/dL LAB CHEMISTRY METHOD 01/14/2025 2:37 PM [facility] BUN 16 5 - 25 mg/dL LAB CHEMISTRY METHOD 01/14/2025 2:37 PM [facility] Creatinine 0.66 0.50 - 1.10 mg/dL LAB CHEMISTRY METHOD 01/14/2025 2:37 PM [facility] eGFR 84 >=60 mL/min/1. 73m2 LAB CHEMISTRY METHOD 01/14/2025 2:37 PM [facility] Comment:Calculation based on the Chronic Kidney Disease Epidemiology Collaboration (CKD-EPI) equation refit without adjustment for race. BUN/Creatinine Ratio 24.2 LAB CHEMISTRY METHOD 01/14/2025 2:37 PM EDT [facility] Calcium 8.9 8.5 - 10.5 mg/dL LAB CHEMISTRY METHOD 01/14/2025 2:37 PM EDT [facility] AST (SGOT) 17 10 - 42 unit/L LAB CHEMISTRY METHOD 01/14/2025 2:37 PM EDT [facility] ALT (SGPT) 8(L) 10 - 60 unit/L LAB CHEMISTRY METHOD 01/14/2025 2:37 PM EDT [facility] Alkaline Phosphatase 119 42 - 121 unit/L LAB CHEMISTRY METHOD 01/14/2025 2:37 PM EDT [facility] Total Protein 7.3 6.0 - 8.0 g/dL LAB CHEMISTRY METHOD 01/14/2025 2:37 PM EDT [facility] Albumin 2.7(L) 3.2 - 5.0 g/dL LAB CHEMISTRY METHOD 01/14/2025 2:37 PM EDT [facility] Total Bilirubin 0.3 0.0 - 1.4 mg/dL LAB CHEMISTRY METHOD 01/14/2025 2:37 PM EDT [facility] Blood Venous blood specimen / Unknown Venipuncture / Unknown 01/14/2025 12:31 PM EDT 01/14/2025 1:53 PM EDT us Alli Garcia MD LAB BLOOD ORDERABLES Final Result [facility] [address] [place] [address], * DXA BONE DENSITY STUDY 1+ SITS AXIAL SKEL (05/11/2021 2:48 PM EDT) Anatomical Region Laterality Modality Bone Densitometr y 10/02/2020 3:14 PM EST Narrative 05/11/2021 6:51 PM EDT BONE DENSITY SCAN (DEXA): FINDINGS: Lumbar Spine T-score is 1.0. (SD relative to 20-29 y/o adult) Z-score is 3.2. (SD relative to age matched peers) This is considered normal by WHO criteria. Left Hip T-score is -1.3. Z-score is 0.2. This is considered osteopenia by WHO criteria. Comparison exam(s): None. IMPRESSION: IMPRESSION: Osteopenia by WHO criteria. This patient has a 5.9% risk of major osteoporotic fracture and a 1.4% risk of hip fracture over the next 10 years. (World Health Organization Fracture Risk Assessment) [facility] Department of Internal Medicine recommends using National Osteoporosis Foundation (NOF) guidelines in treatment decisions related to osteoporosis. NOF guidelines suggest considering treatment for postmenopausal women and men aged 50 or older presenting with the following: History of hip or vertebral fracture. T-score = -2.5 (DXA) at the femoral neck, total hip, or spine, after appropriate evaluation to exclude secondary causes. Low bone mass (T-score between -1.0 and -2.5 at the femoral neck or spine) AND a 10-year probability of a hip fracture = 3% OR a 10-year probability of a major osteoporosis-related fracture = 20% based on the [place]-adapted WHO algorithm Please note that all treatment decisions require clinical judgment and consideration of individual patient factors, including patient preferences, co-morbidities, previous drug use, risk factors not captured in the FRAX model (e.g., frailty, falls, vitamin D deficiency, increased bone turnover, interval significant decline in bone density) and possible under- or over-estimation of fracture risk by FRAX. Optional alternative screening schedule based on gretel Stewart., [facility] November 24, 2011 for patients with osteopenia (based on hip BMD T-score) is as follows: * advanced osteopenia (T scores -2.00 to -2.49), BMD testing every year * moderate osteopenia (T scores -1.50 to -1.99), BMD testing every 5 years mild osteopenia or normal BMD (T scores -1.50 and higher), BMD testing every 15 years Procedure Note Mercedes De La Torre MD - 10/25/2022 BONE DENSITY SCAN (DEXA): FINDINGS: Lumbar Spine T-score is 1.0. (SD relative to 20-29 y/o adult) Z-score is 3.2. (SD relative to age matched peers) This is considered normal by WHO criteria. Left Hip T-score is -1.3. Z-score is 0.2. This is considered osteopenia by WHO criteria. Comparison exam(s): None. IMPRESSION: IMPRESSION: Osteopenia by WHO criteria. This patient has a 5.9% risk of majorosteoporotic fracture and a 1.4% risk of hip fracture over the next 10 years. (World HealthOrganization Fracture Risk Assessment) [facility] Department of Internal Medicine recommendsusing National Osteoporosis Foundation (NOF) guidelines in treatment decisions related toosteoporosis. NOF guidelines suggest considering treatment for postmenopausal women and menaged 50 or older presenting with the following: History of hip or vertebral fracture. T-score = -2.5 (DXA) at the femoral neck, total hip, or spine, afterappropriate evaluation to exclude secondary causes. Low bone mass (T-score between -1.0 and -2.5 at the femoral neck or spine)AND a 10-year probability of a hip fracture = 3% OR a 10-year probability of a majorosteoporosis-related fracture = 20% based on the [place]-adapted WHO algorithm Please note that all treatment decisions require clinical judgment andconsideration of individual patient factors, including patient preferences, co- morbidities,previous drug use, risk factors not captured in the FRAX model (e.g., frailty, falls, vitaminD deficiency, increased bone turnover, interval significant decline in bone density) andpossible under- or over-estimation of fracture risk by FRAX. Optional alternative screening schedule based on shila Stewart al., NEJMJanuary 2011 for patients with osteopenia (based on hip BMD T-score) is as follows: * advanced osteopenia (T scores -2.00 to -2.49), BMD testing every year * moderate osteopenia (T scores -1.50 to -1.99), BMD testing every 5years mild osteopenia or normal BMD (T scores -1.50 and higher), BMD testingevery 15 years El Yip MD IM DXA PROCEDURES Final Result from Last 3 Months or Most Recently Relevant to Health Maintenance Insurance [employer] Care Teams Cafe Site Att[employer] Relationship Specialty Start Date End Date Jody Fontaine MD [address] [place] [address] PCP - General Internal Medicine 09/06/21
== END 2025-09-03 11:02 | disposition home or self-care (01) ==
LOC: HO.HSM 10:32
PROVIDERS: PCP Internal Medicine; Visit Provider Psychiatry & Neurology Neurology
DX: G31.83 Neurocognitive disorder with Lewy bodies (principal); F02.B18 Dementia in other diseases classified elsewhere, moderate, with other behavioral disturbance
CPT/HCPCS: 99214

== ENCOUNTER → 2025-09-03 10:32 | Outpatient (BNVA) | payer OTHER, SELFPAY | PROVIDERS: PCP Internal Medicine; Visit Provider Psychiatry & Neurology Neurology | DX: G31.83 Neurocognitive disorder with Lewy bodies (principal); F02.B18 Dementia in other diseases classified elsewhere, moderate, with other behavioral disturbance | CPT/HCPCS: 99212 ==